=== PATIENT | female | born 1995 | race Caucasian/White ===

== ENCOUNTER 2019-11-07 22:38 | Emergency (ER) | payer BC ==
[~2019-11-07] VITALS: Ht 157.5 cm; Wt 77.1 kg
[2019-11-07 23:02] VITALS: Ht 157.5 cm; Wt 77.1 kg
[2019-11-07 23:44] LABS: BASOPHIL % 0.6 % (0-2); PLATELET COUNT 292 x10^3mcL (130-400); RED CELL DISTRIBUTION WIDTH 13.9 % (11.5-14.5)
[2019-11-07 23:48] LABS: microscopic required? YES; urine erythrocyte 3+ (NEGATIVE)
[2019-11-08 02:00] VITALS: BP 140/77
== END 2019-11-08 02:00 | disposition home or self-care (01) ==
LOC: ED 22:38
PROVIDERS: Emergency Medicine
DX: O20.0 Threatened abortion (principal)
CPT/HCPCS: 36415